=== PATIENT | female | born 1940 | race Caucasian/White ===

== ENCOUNTER 2019-05-20 13:06 | Outpatient (CLI) | payer MEDICARE, OTHER ==
[~2019-05-20 13:06] MED LIST: ASPI325T80 PO; CELE100C PO; LATA2.5D3 EACHEYE; LEVO100T PO; MESA0.372 PO; OXYC5CAP2 PO; TIMO5DRO5 LEFTEYE; [UNRECOGNIZED DRUG - OTHER] EACHEYE; thyroid PO
[2019-05-20 14:21] LABS: BASOPHILS # (AUTO) 0.02 x10^3/uL (0-0.1); BASOPHILS % (AUTO) 1 % (0-1); EOSINOPHILS # (AUTO) 0.07 x10^3/uL (0-0.4); EOSINOPHILS % (AUTO) 1 % (1-7); LYMPHOCYTES # (AUTO) 1.05 x10^3/uL (1-3.4); LYMPHOCYTES % (AUTO) 20 % (22-44); MD NO; MEAN CORPUSCULAR HEMOGLOBIN 34.3 pg (27.0-34.8); MEAN CORPUSCULAR VOLUME 100.7 fL (80-100); MEAN PLATELET VOLUME 6.2 fL (7.4-10.4); MONOCYTES # (AUTO) 0.44 x10^3/uL (0.2-0.8); MONOCYTES % (AUTO) 8 % (2-9); NEUTROPHILS # (AUTO) 3.81 x10^3/uL (1.8-6.8); NEUTROPHILS % (AUTO) 71 % (42-75); PLATELET COUNT 297 x10^3/uL (130-400); RED BLOOD COUNT 4.26 x10^6/uL (3.82-5.3); RED CELL DISTRIBUTION WIDTH 12.9 % (9.6-15.2)
[2019-05-20 14:25] LABS: ALANINE AMINOTRANSFERASE 23 U/L (12-78); ANION GAP 7 mmol/L (5-15); CALCIUM 8.6 mg/dL (8.5-10.1); CHLORIDE 104 mmol/L (98-107); CREATININE 0.55 mg/dL (0.55-1.02)
[2019-05-20 14:27] LABS: ALKALINE PHOSPHATASE 105 U/L (45-117); BILIRUBIN,TOTAL 0.8 mg/dL (0.2-1.0); TOTAL PROTEIN 8.2 g/dL (6.4-8.2)
[2019-05-20] MEDS ORDERED: VITA1CAP PO (15:09)
[2019-05-20] MEDS ORDERED: MILK150C2 PO (15:09)
[2019-05-20] MEDS ORDERED: [UNRECOGNIZED DRUG - CODE] PO (15:09)
[2019-05-20] MEDS ORDERED: ANAS1TAB49 PO (15:09)
[2019-05-20] MEDS ORDERED: CALC600T4 PO (15:09)
[2019-05-20] MEDS ORDERED: TURM500C4 PO (15:09)
[2019-05-20] MEDS ORDERED: LACT1CAP35 PO (15:09)
[2019-05-20] MEDS ORDERED: ASCO10004 PO (15:09)
[2019-05-20] MEDS ORDERED: NIAC500T8 PO (15:09)
[2019-05-20] MEDS ORDERED: [UNRECOGNIZED DRUG - OTHER] EACHEYE (15:09)
[2019-05-20] MEDS ORDERED: UBID100C24 PO (15:09)
[2019-05-20] MEDS ORDERED: BIOT25005 PO (15:09)
[2019-05-20] MEDS ORDERED: KRIL1CAP29 PO (15:09)
[2019-05-20] MEDS ORDERED: LUTE1CAP PO (15:09)
== END 2019-05-20 23:59 | disposition home or self-care (01) ==
LOC: STAR 13:06
PROVIDERS: ATTEND Orthopaedic Surgery
DX: Z01.818 Encounter for other preprocedural examination (principal); M16.12 Unilateral primary osteoarthritis, left hip
CPT/HCPCS: 36415; 80053; 85025; 87081; 93005

== ENCOUNTER 2019-07-18 07:42 | Observation (INO) | payer MEDICARE, OTHER ==
[~2019-07-18] VITALS: Ht 154.9 cm; Wt 54.6 kg
[~2019-07-18 07:42] MED LIST changes: +ANAS1TAB49 PO; +ASCO10004 PO; +BIOT25005 PO; +CALC600T4 PO; +DORZ10DR27 EACHEYE; +EPINEPHRINE 1 MG/ML, 1ML ONE; +KETOROLAC 60 MG/2 ML ONE; +KRIL1CAP29 PO; +LACT1CAP35 PO; +LATA7.5D EACHEYE; +LUTE1CAP PO; +MILK150C2 PO; +NIAC500T8 PO; +ROPIvacaine/PF 0.2%, 20 ML ONE; +SODIUM CHLORIDE 0.9% 50 ML ONE; +TIMO5DRO33 EACHEYE; +TRANEXAMIC ACID 100 MG/ML, 10ML ONE; +TURM500C4 PO; +UBID100C24 PO; +VITA1CAP PO; +[UNRECOGNIZED DRUG - CODE] PO; +[UNRECOGNIZED DRUG - OTHER] EACHEYE
[2019-07-18] MEDS ORDERED: LACTATED RINGERS 1,000 ML IV SCH (08:10)
[2019-07-18] MEDS ORDERED: GABAPENTIN 300 MG CAPSULE PO ONE (08:30)
[2019-07-18] MEDS ORDERED: CHLORHEXIDINE 15 ML UDC MM ONE (08:30)
[2019-07-18] MEDS ORDERED: ACETAMINOPHEN 500 MG TABLET PO ONE (08:30)
[2019-07-18] MEDS ORDERED: ACETAMINOPHEN 500 MG TABLET ONE (08:43)
[2019-07-18] MEDS ORDERED: GABAPENTIN 300 MG CAPSULE ONE (08:43)
[2019-07-18] MEDS ORDERED: CHLORHEXIDINE 15 ML UDC ONE (08:43)
[2019-07-18 08:55] VITALS: BP 156/93
[2019-07-18] MEDS ORDERED: MIDAZOLAM 1 MG/ML, 2ML ONE (09:38)
[2019-07-18] MEDS ORDERED: hydrALAzine 20 MG/ML, 1ML ONE (09:38)
[2019-07-18] MEDS ORDERED: DEXAMETHASONE 4 MG/ML, 1ML ONE (09:38)
[2019-07-18] MEDS ORDERED: GLYCOPYRROLATE 0.2MG/1ML, 5ML ONE (09:38)
[2019-07-18] MEDS ORDERED: ONDANSETRON 2MG/ML, 2ML ONE (09:38)
[2019-07-18] MEDS ORDERED: FENTANYL PF 100 MCG/2ML ONE ×2 (09:38→11:31)
[2019-07-18] MEDS ORDERED: ROCURONIUM 10MG/ML,5ML ONE (09:38)
[2019-07-18] MEDS ORDERED: NEOSTIGMINE 1 MG/ML, 10ML ONE (09:38)
[2019-07-18] MEDS ORDERED: CEFAZOLIN 1,000 MG ONE (09:38)
[2019-07-18] MEDS ORDERED: LIDOCAINE-MPF 2% ,5ML ONE (09:38)
[2019-07-18] MEDS ORDERED: SUCCINYLCHOLINE 20 MG/ML, 10ML ONE (09:38)
[2019-07-18] MEDS ORDERED: PROPOFOL 10 MG/ML, 20ML ONE (09:38)
[2019-07-18] MEDS ORDERED: ONDANSETRON 2MG/ML, 2ML IVPush PRN (10:30)
[2019-07-18] MEDS ORDERED: LABETALOL 5MG/ML, 20ML IV PRN (10:30)
[2019-07-18] MEDS ORDERED: OXYcodone 5 MG/5 ML ORAL.SOL UDC PO PRN (10:30)
[2019-07-18] MEDS ORDERED: MEPERIDINE/PF 25MG/0.5ML IVPush PRN (10:30)
[2019-07-18] MEDS ORDERED: HYDROmorphone 1 MG/ML, 1ML INJ IVPush PRN (10:30)
[2019-07-18] MEDS ORDERED: hydrALAzine 20 MG/ML, 1ML IV PRN (10:30)
[2019-07-18] MEDS: D5%-0.45% NACL 1,000 ML IV SCH ×2 (11:18→19:30)
[2019-07-18] MEDS ORDERED: BISACODYL 10 MG SUPP PR PRN (11:30)
[2019-07-18] MEDS ORDERED: MORPHINE SULFATE 4 MG/ML, 1ML IVPush PRN (11:30)
[2019-07-18] MEDS ORDERED: DIAZEPAM 5 MG TABLET PO PRN (11:30)
[2019-07-18] MEDS: KETOROLAC 30 MG/1 ML IV SCH ×2 (11:30→19:30)
[2019-07-18] MEDS ORDERED: MAGNESIUM HYDROXIDE 8%, 30ML UDC PO PRN (11:30)
[2019-07-18] MEDS ORDERED: ALUMINUM/MAG/SIMETHICONE 30 ML UDC PO PRN (11:30)
[2019-07-18] MEDS ORDERED: OXYcodone IR 5MG TABLET PO PRN ×2 (11:30)
[2019-07-18] MEDS: ACETAMINOPHEN 500 MG TABLET PO SCH ×2 (11:30→19:30)
[2019-07-18] MEDS ORDERED: ONDANSETRON 2MG/ML, 2ML IV PRN (11:30)
[2019-07-18] MEDS ORDERED: PROMETHAZINE 25 MG/ML, 1ML IM PRN (11:30)
[2019-07-18] MEDS ORDERED: OXYcodone 5 MG/5 ML ORAL.SOL UDC ONE (11:31)
[2019-07-18] MEDS: FENTANYL PF 100 MCG/2ML IV PRN ×2 (11:34→11:50)
[2019-07-18] MEDS: CALCIUM/VITAMIN D3 250-125 TABLET PO SCH ×2 (12:00→17:18)
[2019-07-18 12:30] VITALS: BP 119/69
[2019-07-18] MEDS: CEFAZOLIN PMX 1GM/50ML 50 ML IVPB SCH (17:18)
[2019-07-18] MEDS ORDERED: ASPIRIN 81 MG TABLET EC PO SCH (18:00)
[2019-07-18] MEDS: DOCUSATE 100 MG CAPSULE PO SCH (19:47)
[2019-07-18 20:37] VITALS: BP 117/73
[2019-07-18 23:56] VITALS: BP 117/64
[2019-07-19] MEDS: CEFAZOLIN PMX 1GM/50ML 50 ML IVPB SCH (01:45)
[2019-07-19] MEDS: D5%-0.45% NACL 1,000 ML IV SCH ×2 (03:18→06:56)
[2019-07-19] MEDS: KETOROLAC 30 MG/1 ML IV SCH (03:55)
[2019-07-19] MEDS: ACETAMINOPHEN 500 MG TABLET PO SCH ×2 (03:55→12:10)
[2019-07-19 05:19] VITALS: BP 146/71
[2019-07-19] MEDS ORDERED: DEXAMETHASONE 4 MG/ML, 1ML IVPush ONE (06:00)
[2019-07-19 07:23] VITALS: BP 131/80
[2019-07-19] MEDS: CALCIUM/VITAMIN D3 250-125 TABLET PO SCH ×2 (07:40→12:10)
[2019-07-19] MEDS: DOCUSATE 100 MG CAPSULE PO SCH (07:40)
[2019-07-19] MEDS ORDERED: MULTIVITAMINS/MINERALS TABLET PO SCH (09:00)
[2019-07-19] MEDS ORDERED: LEVOTHYROXINE 75 MCG TABLET PO SCH (09:00)
[2019-07-19 12:53] VITALS: BP 132/73
== END 2019-07-19 13:20 | disposition home or self-care (01) ==
LOC: OUT 07:42 → ORIP 11:18 → 4NE 12:25
PROVIDERS: ADMIT Orthopaedic Surgery; ATTEND Orthopaedic Surgery
DX: Z03.818 Encounter for observation for suspected exposure to other biological agents ruled out (principal); M16.12 Unilateral primary osteoarthritis, left hip; I10 Essential (primary) hypertension; M25.052 Hemarthrosis, left hip; Z79.82 Long term (current) use of aspirin; Z79.899 Other long term (current) drug therapy
CPT/HCPCS: 27130; 36415; 73502; 85014; 85018; 86850; 86900; 96365; 96366; 96375; 96376; 97110; 97161; C1713; C1776; G0378; J0171; J0330; J0360; J0690; J1100; J1885; J2250; J2405; J2704; J2710; J2795; J3010; J3490; J7120; U0001

== ENCOUNTER 2019-07-21 15:47 | Inpatient (IN) | payer MEDICARE, OTHER ==
[~2019-07-21] VITALS: Ht 154.9 cm; Wt 58.9 kg
[~2019-07-21 15:47] MED LIST changes: -EPINEPHRINE 1 MG/ML, 1ML ONE; -KETOROLAC 60 MG/2 ML ONE; -ROPIvacaine/PF 0.2%, 20 ML ONE; -SODIUM CHLORIDE 0.9% 50 ML ONE; -TRANEXAMIC ACID 100 MG/ML, 10ML ONE
--- NOTE | 2019-07-21 16:02 | NUR ---
PT HAD L HIP REPLACEMENT THURSDAY. ON Thu, PT BENT DOWN AND SINCE THEN HAS HAD INCREASED SWELLING AND PAIN TO L HIP. PT AOX4, PLACED ON MONITOR. WILL CONTINUE TO MONITOR PT.
--- NOTE | 2019-07-21 16:09 | NUR ---
Bedside report from Zohra HENRY, pt laying in [facility], NAD, RESP WNL, P/W/D, WCTM.
--- NOTE | 2019-07-21 17:09 | NUR ---
LATE ENTRY: PT RESTING IN [facility]. AT . NAD, P/W/D, RESP WNL, WCTM. WAITING FOR RAD RESULTS
[2019-07-21] MEDS ORDERED: ULTRAM PO (17:48)
[2019-07-21] MEDS ORDERED: ASPI-515 PO (17:48)
[2019-07-21] MEDS ORDERED: CELEBREX PO (17:48)
--- NOTE | 2019-07-21 17:50 | NUR ---
PT RESTING IN [facility]. AT BS. NAD, P/W/D, RESP WNL, WCTM. Rad at bs. WAITING FOR SURGERY.
[2019-07-21] MEDS ORDERED: ONDANSETRON 2MG/ML, 2ML ONE ×2 (17:52→21:02)
[2019-07-21] MEDS ORDERED: MORPHINE SULFATE 4 MG/ML, 1ML IVPush PRN ×2 (18:00→21:30)
[2019-07-21] MEDS ORDERED: ONDANSETRON 2MG/ML, 2ML IVPush ONE (18:00)
[2019-07-21] MEDS ORDERED: SODIUM CHLORIDE FLUSH 10ML SYR IVF ONE (18:00)
[2019-07-21] MEDS ORDERED: CHLORHEXIDINE 15 ML UDC ONE (18:11)
--- NOTE | 2019-07-21 18:11 | NUR ---
report called to OR, pt tj brown, at bs, NAD, RESP WNL, VSS, WCTM.
[2019-07-21] MEDS ORDERED: HEPARIN 1,000 UNITS/ML, 30ML ONE (18:14)
[2019-07-21] MEDS ORDERED: FENTANYL PF 250 MCG/5ML ONE (18:34)
[2019-07-21 18:37] LABS: INTERNATIONAL NORMALIZED RATIO 0.99 (0.93-1.1); PROTHROMBIN TIME 10.5 Seconds (9.6-11.5)
[2019-07-21 18:42] LABS: ALBUMIN 2.8 g/dL (3.4-5.0); ANION GAP 5 mmol/L (5-15); CALCIUM 8.3 mg/dL (8.5-10.1); CHLORIDE 102 mmol/L (98-107); CREATININE 0.47 mg/dL (0.55-1.02)
[2019-07-21] MEDS ORDERED: SODIUM CHLORIDE 0.9% 0 ML ONE (18:47)
[2019-07-21] MEDS ORDERED: ROPIvacaine/PF 0.2%, 20 ML ONE (18:47)
[2019-07-21] MEDS ORDERED: EPINEPHRINE 1 MG/ML, 1ML ONE (18:47)
[2019-07-21] MEDS ORDERED: KETOROLAC 60 MG/2 ML ONE (18:47)
[2019-07-21 18:49] LABS: BASOPHILS # (AUTO) 0.01 x10^3/uL (0-0.1); BASOPHILS % (AUTO) 0 % (0-1); EOSINOPHILS # (AUTO) 0.05 x10^3/uL (0-0.4); EOSINOPHILS % (AUTO) 1 % (1-7); HEMOGRAM NOTE RECHECKED; LYMPHOCYTES # (AUTO) 0.87 x10^3/uL (1-3.4); LYMPHOCYTES % (AUTO) 15 % (22-44); MD NO; MEAN CORPUSCULAR HEMOGLOBIN 34.6 pg (27.0-34.8); MEAN CORPUSCULAR HGB CONC 34.3 g/dL (32.4-35.8); MEAN CORPUSCULAR VOLUME 100.9 fL (80-100); MEAN PLATELET VOLUME 6.5 fL (7.4-10.4); MONOCYTES % (AUTO) 9 % (2-9); NEUTROPHILS % (AUTO) 76 % (42-75); PLATELET COUNT 235 x10^3/uL (130-400); RED BLOOD COUNT 2.56 x10^6/uL (3.82-5.3); RED CELL DISTRIBUTION WIDTH 12.8 % (9.6-15.2)
[2019-07-21] MEDS ORDERED: SUCCINYLCHOLINE 20 MG/ML, 10ML ONE (19:13)
[2019-07-21] MEDS ORDERED: ROCURONIUM 10 MG/ML,10ML ONE (19:13)
[2019-07-21] MEDS ORDERED: POLYETHYLENE GLYCOL 17 GM PACKET PO PRN (19:30)
[2019-07-21] MEDS ORDERED: morphine SULFATE 10 MG/ML, 1ML IVPush PRN (19:30)
[2019-07-21] MEDS ORDERED: ONDANSETRON ODT 4 MG PO PRN (19:30)
[2019-07-21] MEDS ORDERED: ONDANSETRON 2MG/ML, 2ML IVPush PRN ×2 (19:30→21:30)
[2019-07-21] MEDS ORDERED: VANCOMYCIN 1,000 MG ONE (19:41)
[2019-07-21] MEDS ORDERED: TRANEXAMIC ACID 100 MG/ML, 10ML ONE ×2 (19:50)
[2019-07-21] MEDS ORDERED: hydrALAzine 20 MG/ML, 1ML IV PRN (21:00)
[2019-07-21] MEDS ORDERED: FENTANYL PF 100 MCG/2ML IV PRN (21:00)
[2019-07-21] MEDS ORDERED: MIDAZOLAM 1 MG/ML, 2ML IV PRN (21:00)
[2019-07-21] MEDS ORDERED: LABETALOL 5MG/ML, 20ML IV PRN (21:00)
[2019-07-21] MEDS ORDERED: ACETAMINOPHEN 325 MG TABLET PO PRN (21:00)
[2019-07-21] MEDS ORDERED: MEPERIDINE/PF 25MG/0.5ML IVPush PRN (21:00)
[2019-07-21] MEDS ORDERED: PROMETHAZINE 25 MG/ML, 1ML IVPush PRN (21:00)
[2019-07-21] MEDS ORDERED: ALBUTEROL SULFATE 2.5 MG/3 ML NPPB PRN (21:00)
[2019-07-21] MEDS ORDERED: PROPOFOL 10 MG/ML, 20ML ONE (21:02)
[2019-07-21] MEDS ORDERED: CEFAZOLIN 1,000 MG ONE (21:02)
[2019-07-21] MEDS ORDERED: DEXAMETHASONE 4 MG/ML, 1ML ONE (21:02)
[2019-07-21] MEDS ORDERED: MAGNESIUM HYDROXIDE 8%, 30ML UDC PO PRN (21:30)
[2019-07-21] MEDS: ACETAMINOPHEN 500 MG TABLET PO SCH (21:30)
[2019-07-21] MEDS ORDERED: PROMETHAZINE 25 MG/ML, 1ML IM PRN (21:30)
[2019-07-21] MEDS ORDERED: DIPHENHYDRAMINE 25 MG CAPSULE PO PRN (21:30)
[2019-07-21] MEDS ORDERED: OXYcodone IR 5MG TABLET PO PRN ×2 (21:30)
[2019-07-21] MEDS ORDERED: DIAZEPAM 5 MG TABLET PO PRN (21:30)
[2019-07-21] MEDS ORDERED: TRANEXAMIC ACID 1,000 MG in SODIUM CHLORIDE 0.9% 100 ML IVPB ONE (21:30)
[2019-07-21] MEDS ORDERED: DEXAMETHASONE 4 MG/ML, 1ML IVPush ONE (21:30)
[2019-07-21] MEDS ORDERED: METOCLOPRAMIDE 10MG TABLET PO PRN (21:30)
[2019-07-21] MEDS ORDERED: OXYcodone 5 MG/5 ML ORAL.SOL UDC ONE ×2 (21:46→22:09)
[2019-07-21] MEDS ORDERED: HYDROmorphone 1 MG/ML, 1ML INJ ONE (21:46)
[2019-07-21] MEDS ORDERED: FENTANYL PF 100 MCG/2ML ONE (21:46)
[2019-07-21] MEDS: OXYcodone 5 MG/5 ML ORAL.SOL UDC PO PRN ×2 (21:48→22:09)
[2019-07-21] MEDS: HYDROmorphone 1 MG/ML, 1ML INJ IVPush PRN ×2 (21:50→22:03)
[2019-07-21] MEDS ORDERED: ACETAMINOPHEN 650 MG/20.3 ML UDC ONE (22:04)
[2019-07-22 00:46] VITALS: BP 135/79
[2019-07-22] MEDS: DOCUSATE 100 MG CAPSULE PO SCH ×4 (01:54→21:48)
[2019-07-22] MEDS: LATANOPROST OPHTH 0.005%, 2.5ML EACHEYE SCH ×2 (01:54→21:49)
[2019-07-22] MEDS: DORZOLAMIDE OPHTH 2%, 10ML EACHEYE SCH ×3 (01:55→21:49)
[2019-07-22] MEDS: D5%-0.45% NACL 1,000 ML IV SCH ×2 (03:18→05:24)
[2019-07-22 04:07] VITALS: BP 116/72
[2019-07-22] MEDS: CEFAZOLIN PMX 1GM/50ML 50 ML IVPB SCH ×2 (05:35→13:19)
[2019-07-22] MEDS: LEVOTHYROXINE 75 MCG TABLET PO SCH (05:53)
[2019-07-22] MEDS: ACETAMINOPHEN 500 MG TABLET PO SCH ×3 (05:53→21:49)
[2019-07-22] MEDS ORDERED: DEXAMETHASONE 4 MG/ML, 1ML IVPush ONE (06:00)
[2019-07-22 06:07] LABS: BASOPHILS % (AUTO) 0 % (0-1); EOSINOPHILS % (AUTO) 0 % (1-7); LYMPHOCYTES % (AUTO) 8 % (22-44); MD NO; MEAN CORPUSCULAR HEMOGLOBIN 34.1 pg (27.0-34.8); MEAN CORPUSCULAR HGB CONC 33.6 g/dL (32.4-35.8); MEAN CORPUSCULAR VOLUME 101.7 fL (80-100); MEAN PLATELET VOLUME 6.4 fL (7.4-10.4); MONOCYTES % (AUTO) 5 % (2-9); NEUTROPHILS # (AUTO) 5.23 x10^3/uL (1.8-6.8); NEUTROPHILS % (AUTO) 87 % (42-75); PLATELET COUNT 221 x10^3/uL (130-400); RED BLOOD COUNT 2.28 x10^6/uL (3.82-5.3); RED CELL DISTRIBUTION WIDTH 13.1 % (9.6-15.2)
[2019-07-22 06:10] LABS: ANION GAP 3 mmol/L (5-15); CALCIUM 7.8 mg/dL (8.5-10.1); CHLORIDE 105 mmol/L (98-107); CREATININE 0.39 mg/dL (0.55-1.02)
[2019-07-22 06:30] VITALS: BP 104/66
[2019-07-22] MEDS: MULTIVITAMINS/MINERALS TABLET PO SCH (09:14)
[2019-07-22] MEDS: TIMOLOL OPHTH 0.5%, 5ML EACHEYE SCH (09:14)
[2019-07-22] MEDS: LACTATED RINGERS 1,000 ML IV SCH ×2 (09:30→22:50)
[2019-07-22 11:01] LABS: % IRON SATURATION 8 % (20-55); IRON LEVEL 20 mcg/dL (50-170); TOTAL IRON BINDING CAPACITY 258 mcg/dL (250-450)
[2019-07-22 12:21] VITALS: BP 153/73
[2019-07-22] MEDS: ENOXAPARIN 40 MG/0.4 ML SQ SCH (17:52)
[2019-07-22 18:17] VITALS: BP 150/70
[2019-07-23 00:28] VITALS: BP 145/73
[2019-07-23 05:13] LABS: PLATELET COUNT 276 x10^3/uL (130-400); RED BLOOD COUNT 2.15 x10^6/uL (3.82-5.3); RED CELL DISTRIBUTION WIDTH 13.2 % (9.6-15.2)
[2019-07-23 05:22] LABS: ANION GAP 5 mmol/L (5-15); CALCIUM 7.9 mg/dL (8.5-10.1); CHLORIDE 103 mmol/L (98-107); CREATININE 0.48 mg/dL (0.55-1.02)
[2019-07-23 06:01] LABS: BASOPHILS # (AUTO) 0.01 x10^3/uL (0-0.1); BASOPHILS % (AUTO) 0 % (0-1); EOSINOPHILS # (AUTO) 0.02 x10^3/uL (0-0.4); EOSINOPHILS % (AUTO) 0 % (1-7); LYMPHOCYTES # (AUTO) 1.13 x10^3/uL (1-3.4); LYMPHOCYTES % (AUTO) 16 % (22-44); MD SCAN; MONOCYTES # (AUTO) 0.68 x10^3/uL (0.2-0.8); MONOCYTES % (AUTO) 10 % (2-9); NEUTROPHILS # (AUTO) 5.09 x10^3/uL (1.8-6.8); NEUTROPHILS % (AUTO) 73 % (42-75)
[2019-07-23] MEDS: ACETAMINOPHEN 500 MG TABLET PO SCH ×3 (06:02→20:20)
[2019-07-23] MEDS: LEVOTHYROXINE 75 MCG TABLET PO SCH (06:02)
[2019-07-23 06:57] VITALS: BP 102/64
[2019-07-23] MEDS: TIMOLOL OPHTH 0.5%, 5ML EACHEYE SCH (08:40)
[2019-07-23] MEDS: DOCUSATE 100 MG CAPSULE PO SCH ×2 (08:40→20:20)
[2019-07-23] MEDS: DORZOLAMIDE OPHTH 2%, 10ML EACHEYE SCH ×2 (08:40→21:00)
[2019-07-23] MEDS: MULTIVITAMINS/MINERALS TABLET PO SCH (08:40)
[2019-07-23] MEDS: FERROUS GLUCONATE 324 MG TABLET PO SCH (08:40)
[2019-07-23 12:31] VITALS: BP 92/54
[2019-07-23] MEDS: ENOXAPARIN 40 MG/0.4 ML SQ SCH (18:08)
[2019-07-23 18:41] VITALS: BP 121/74
[2019-07-23] MEDS: LATANOPROST OPHTH 0.005%, 2.5ML EACHEYE SCH (21:00)
[2019-07-24] VITALS (7 sets, daily range): BP systolic 125–162; BP diastolic 61–93
[2019-07-24] MEDS: ACETAMINOPHEN 500 MG TABLET PO SCH ×3 (04:48→20:49)
[2019-07-24] MEDS: LEVOTHYROXINE 75 MCG TABLET PO SCH (04:48)
[2019-07-24 06:27] LABS: CALCIUM 7.6 mg/dL (8.5-10.1); CHLORIDE 102 mmol/L (98-107)
[2019-07-24 06:33] LABS: ALANINE AMINOTRANSFERASE 25 U/L (12-78); ALBUMIN 2.3 g/dL (3.4-5.0); ALKALINE PHOSPHATASE 68 U/L (45-117); ANION GAP 6 mmol/L (5-15); BILIRUBIN,TOTAL 1.3 mg/dL (0.2-1.0); CREATININE 0.37 mg/dL (0.55-1.02); TOTAL PROTEIN 5.3 g/dL (6.4-8.2)
[2019-07-24] MEDS: DOCUSATE 100 MG CAPSULE PO SCH ×2 (09:00→20:49)
[2019-07-24] MEDS: TIMOLOL OPHTH 0.5%, 5ML EACHEYE SCH (09:00)
[2019-07-24] MEDS: DORZOLAMIDE OPHTH 2%, 10ML EACHEYE SCH ×2 (09:00→20:48)
[2019-07-24] MEDS: FERROUS GLUCONATE 324 MG TABLET PO SCH (09:32)
[2019-07-24] MEDS: MULTIVITAMINS/MINERALS TABLET PO SCH (09:32)
[2019-07-24] MEDS ORDERED: IRON DEXTRAN COMPLEX 25 MG in SODIUM CHLORIDE 0.9% 50 ML IV ONE (14:00)
[2019-07-24] MEDS ORDERED: EPINEPHRINE 1 MG/ML, 1ML IV PRN (14:00)
[2019-07-24] MEDS ORDERED: IRON DEXTRAN COMPLEX IV ONE (14:30)
[2019-07-24] MEDS ORDERED: SODIUM CHLORIDE 0.9% IV ONE (14:30)
[2019-07-24] MEDS: ENOXAPARIN 40 MG/0.4 ML SQ SCH (17:37)
--- NOTE | 2019-07-24 17:53 | NUR ---
18 gauge left wrist piv placed with ultrasound
[2019-07-24] MEDS: LATANOPROST OPHTH 0.005%, 2.5ML EACHEYE SCH (20:49)
[2019-07-25 02:10] VITALS: BP 146/68
[2019-07-25] MEDS: ACETAMINOPHEN 500 MG TABLET PO SCH ×3 (05:34→21:30)
[2019-07-25] MEDS: LEVOTHYROXINE 75 MCG TABLET PO SCH (05:35)
[2019-07-25 06:21] VITALS: BP 155/72
[2019-07-25 07:21] LABS: ABSOLUTE RETICS # 0.098 x10^6/uL (0.5-2.5); RETICULOCYTE COUNT % 4.41 % (0.5-1.5)
[2019-07-25 07:26] LABS: ALBUMIN 2.4 g/dL (3.4-5.0); ANION GAP 8 mmol/L (5-15); CHLORIDE 106 mmol/L (98-107); CREATININE 0.42 mg/dL (0.55-1.02); MEAN CORPUSCULAR HEMOGLOBIN 34.1 pg (27.0-34.8); MEAN CORPUSCULAR HGB CONC 33.3 g/dL (32.4-35.8); MEAN CORPUSCULAR VOLUME 102.3 fL (80-100); MEAN PLATELET VOLUME 6.1 fL (7.4-10.4); PLATELET COUNT 380 x10^3/uL (130-400); RED BLOOD COUNT 2.22 x10^6/uL (3.82-5.3); RED CELL DISTRIBUTION WIDTH 13.8 % (9.6-15.2)
[2019-07-25 07:28] LABS: ALKALINE PHOSPHATASE 98 U/L (45-117); BILIRUBIN,TOTAL 1.2 mg/dL (0.2-1.0); TOTAL PROTEIN 5.9 g/dL (6.4-8.2)
[2019-07-25 07:37] LABS: RED BLOOD COUNT 2.23 x10^6/uL (3.82-5.3)
[2019-07-25 07:40] LABS: ALANINE AMINOTRANSFERASE 33 U/L (12-78)
[2019-07-25] MEDS: MULTIVITAMINS/MINERALS TABLET PO SCH (07:54)
[2019-07-25] MEDS: DORZOLAMIDE OPHTH 2%, 10ML EACHEYE SCH ×2 (07:55→21:00)
[2019-07-25] MEDS: TIMOLOL OPHTH 0.5%, 5ML EACHEYE SCH (07:55)
[2019-07-25] MEDS: FERROUS GLUCONATE 324 MG TABLET PO SCH (07:55)
[2019-07-25] MEDS: DOCUSATE 100 MG CAPSULE PO SCH ×2 (07:56→21:00)
[2019-07-25 08:16] LABS: BASOPHILS # (AUTO) 0.02 x10^3/uL (0-0.1); BASOPHILS % (AUTO) 0 % (0-1); EOSINOPHILS # (AUTO) 0.17 x10^3/uL (0-0.4); EOSINOPHILS % (AUTO) 3 % (1-7); LYMPHOCYTES # (AUTO) 0.75 x10^3/uL (1-3.4); LYMPHOCYTES % (AUTO) 14 % (22-44); MD SCAN; MONOCYTES # (AUTO) 0.57 x10^3/uL (0.2-0.8); MONOCYTES % (AUTO) 10 % (2-9); NEUTROPHILS # (AUTO) 4.02 x10^3/uL (1.8-6.8); NEUTROPHILS % (AUTO) 73 % (42-75)
[2019-07-25 13:08] VITALS: BP_SYST 157; BP_SYST 175; BP_DIAS 85
[2019-07-25] MEDS: PANTOPRAZOLE 40MG TABLET PO SCH (14:05)
[2019-07-25] MEDS: ENOXAPARIN 40 MG/0.4 ML SQ SCH (17:06)
[2019-07-25 18:34] VITALS: BP 146/79
[2019-07-25] MEDS: LATANOPROST OPHTH 0.005%, 2.5ML EACHEYE SCH (21:00)
[2019-07-26 01:57] VITALS: BP 132/55
[2019-07-26] MEDS: ACETAMINOPHEN 500 MG TABLET PO SCH ×2 (05:50→13:39)
[2019-07-26] MEDS: LEVOTHYROXINE 75 MCG TABLET PO SCH (05:50)
[2019-07-26] MEDS: PANTOPRAZOLE 40MG TABLET PO SCH (05:50)
[2019-07-26 05:56] LABS: MEAN CORPUSCULAR HEMOGLOBIN 33.8 pg (27.0-34.8); MEAN CORPUSCULAR HGB CONC 33.1 g/dL (32.4-35.8); MEAN CORPUSCULAR VOLUME 102.1 fL (80-100); MEAN PLATELET VOLUME 6.2 fL (7.4-10.4); PLATELET COUNT 376 x10^3/uL (130-400); RED BLOOD COUNT 2.23 x10^6/uL (3.82-5.3); RED CELL DISTRIBUTION WIDTH 13.8 % (9.6-15.2)
[2019-07-26 06:25] LABS: BASOPHILS # (AUTO) 0.01 x10^3/uL (0-0.1); BASOPHILS % (AUTO) 0 % (0-1); EOSINOPHILS # (AUTO) 0.26 x10^3/uL (0-0.4); EOSINOPHILS % (AUTO) 5 % (1-7); LYMPHOCYTES # (AUTO) 0.86 x10^3/uL (1-3.4); LYMPHOCYTES % (AUTO) 16 % (22-44); MD SCAN; MONOCYTES # (AUTO) 0.61 x10^3/uL (0.2-0.8); MONOCYTES % (AUTO) 11 % (2-9); NEUTROPHILS # (AUTO) 3.77 x10^3/uL (1.8-6.8); NEUTROPHILS % (AUTO) 68 % (42-75)
[2019-07-26] MEDS: TIMOLOL OPHTH 0.5%, 5ML EACHEYE SCH (07:30)
[2019-07-26] MEDS: DORZOLAMIDE OPHTH 2%, 10ML EACHEYE SCH (07:30)
[2019-07-26] MEDS ORDERED: ACET500T64 PO (07:47)
[2019-07-26 08:00] VITALS: BP 100/64
[2019-07-26] MEDS: FERROUS GLUCONATE 324 MG TABLET PO SCH (08:45)
[2019-07-26] MEDS: DOCUSATE 100 MG CAPSULE PO SCH (08:45)
[2019-07-26] MEDS: MULTIVITAMINS/MINERALS TABLET PO SCH (08:46)
[2019-07-26 12:41] VITALS: BP 143/84
== END 2019-07-26 14:35 | disposition home or self-care (01) | DRG 467 ==
LOC: ED 16:23 → EDIP 18:07 → 4NE 23:00
PROVIDERS: ADMIT Internal Medicine; ATTEND Internal Medicine
PROC: 30233N1 Transfusion of Nonautologous Red Blood Cells into Peripheral Vein, Percutaneous Approach (ICD-10-PCS; 2019-07-21)
PROC: 0SPS0JZ Removal of Synthetic Substitute from Left Hip Joint, Femoral Surface, Open Approach (ICD-10-PCS; 2019-07-21)
PROC: 0SRS03A Replacement of Left Hip Joint, Femoral Surface with Ceramic Synthetic Substitute, Uncemented, Open Approach (ICD-10-PCS; principal; 2019-07-21 18:30)
DX: S72.122A Displaced fracture of lesser trochanter of left femur, initial encounter for closed fracture (principal); E87.1 Hypo-osmolality and hyponatremia; D62 Acute posthemorrhagic anemia; M97.02XA Periprosthetic fracture around internal prosthetic left hip joint, initial encounter; M19.90 Unspecified osteoarthritis, unspecified site; E03.9 Hypothyroidism, unspecified; H40.9 Unspecified glaucoma; M85.80 Other specified disorders of bone density and structure, unspecified site; E83.51 Hypocalcemia; Z96.622 Presence of left artificial elbow joint; D64.9 Anemia, unspecified; D50.9 Iron deficiency anemia, unspecified; D25.9 Leiomyoma of uterus, unspecified; Z90.89 Acquired absence of other organs; Z79.899 Other long term (current) drug therapy; X50.1XXA Overexertion from prolonged static or awkward postures, initial encounter; Z96.643 Presence of artificial hip joint, bilateral
CPT/HCPCS: 36415; 71045; 80048; 80053; 82040; 82607; 82728; 83540; 83550; 84443; 85014; 85018; 85025; 85045; 85610; 86850; 86900; 86923; 93005; 96374; 99285; G0378; J0171; J0690; J1100; J1170; J1644; J1650; J1750; J1885; J2405; J2704; J2795; J3010; J3370; C1776; J0330; J7050; P9016; Q0163